=== PATIENT | male | born 1970 | race Caucasian/White ===

== ENCOUNTER 2019-08-19 10:03 | Outpatient (CLI) | payer MEDICARE, MEDICAID ==
--- NOTE | 2019-08-21 10:30 | RAD ---
Exam: Modified barium swallow with speech therapist: HISTORY: Dysphasia, oral pharyngeal, and feeding difficulties FINDINGS: Premature spillage in the vallecula. Several episodes of penetration. No cheyenne aspiration. Please see speech therapy report for additional findings and recommendations.
== END 2019-08-19 10:04 | disposition home or self-care (01) ==
PROVIDERS: ATTEND Family Medicine
DX: R13.12 Dysphagia, oropharyngeal phase (principal); R63.3 Feeding difficulties
CPT/HCPCS: 74230